=== PATIENT | female | born 1990 | race Caucasian/White ===

== ENCOUNTER 2018-02-10 01:04 | Emergency (ER) | payer BC, OTHER ==
[~2018-02-10] VITALS: Ht 162.6 cm; Wt 67.7 kg
[~2018-02-10 01:04] MED LIST: ARIP5TAB13 PO; CLON0.5T20 PO; GABA600T2 PO; LAMO100T5 PO; ZOLP-413 PO
--- NOTE | 2018-02-10 01:38 | NUR ---
PT AMBULATED TO ROOM WITH A STEADY GAIT. PT HERE FOR FEVER AND NECK PAIN. PT SEEN AT FOR SAME. PT UP TO BATHROOM FOR UA. LAB AT BEDSIDE
[2018-02-10 01:48] LABS: BASOPHILS # (AUTO) 0.01 x10^3/uL (0-0.1); BASOPHILS % (AUTO) 0 % (0-1); EOSINOPHILS # (AUTO) 0.15 x10^3/uL (0-0.4); EOSINOPHILS % (AUTO) 2 % (1-7); LYMPHOCYTES # (AUTO) 2.27 x10^3/uL (1-3.4); LYMPHOCYTES % (AUTO) 25 % (22-44); MD NO; MEAN CORPUSCULAR HEMOGLOBIN 28.3 pg (27.0-34.8); MEAN CORPUSCULAR HGB CONC 34.1 g/dL (32.4-35.8); MEAN CORPUSCULAR VOLUME 83.1 fL (80-100); MEAN PLATELET VOLUME 8.2 fL (7.4-10.4); MONOCYTES # (AUTO) 0.44 x10^3/uL (0.2-0.8); MONOCYTES % (AUTO) 5 % (2-9); NEUTROPHILS # (AUTO) 6.24 x10^3/uL (1.8-6.8); NEUTROPHILS % (AUTO) 69 % (42-75); PLATELET COUNT 259 x10^3/uL (130-400); RED BLOOD COUNT 4.98 x10^6/uL (3.82-5.3)
[2018-02-10 01:57] LABS: HCG UR SG 1.033 (1.003-1.030); MICROSCOPIC INDICATED
[2018-02-10 01:57] LABS: ALBUMIN 4.2 g/dL (3.4-5.0); ANION GAP 7 mmol/L (5-15); CALCIUM 9.1 mg/dL (8.5-10.1); CHLORIDE 108 mmol/L (98-107); CREATININE 0.91 mg/dL (0.55-1.02)
[2018-02-10 02:01] LABS: RAPID INFLUENZA A Negative (Negative); RAPID INFLUENZA B Negative (Negative)
[2018-02-10 02:08] LABS: CULTURE INDICATED? YES
[2018-02-10 02:25] VITALS: BP 109/71
== END 2018-02-10 02:57 | disposition home or self-care (01) ==
LOC: ED 01:38
DX: S16.1XXA Strain of muscle, fascia and tendon at neck level, initial encounter (principal); F31.9 Bipolar disorder, unspecified; Z87.891 Personal history of nicotine dependence; X58.XXXA Exposure to other specified factors, initial encounter; Y93.89 Activity, other specified; Y92.89 Other specified places as the place of occurrence of the external cause; Y99.8 Other external cause status
CPT/HCPCS: 36415; 80048; 81001; 81025; 82040; 85025; 87086; 87400; 99283

== ENCOUNTER 2019-09-14 11:43 | Emergency (ER) | payer SELFPAY ==
[~2019-09-14] VITALS: Ht 157.5 cm; Wt 72.0 kg
[~2019-09-14 11:43] MED LIST changes: -GABA600T2 PO; +GABA600T7 PO
[2019-09-14] MEDS ORDERED: KETOROLAC 30 MG/1 ML ONE (12:10)
[2019-09-14] MEDS ORDERED: SODIUM CHLORIDE 0.9% 1,000ML IVBOLUS ONE (12:30)
[2019-09-14] MEDS ORDERED: KETOROLAC 30 MG/1 ML IVPush ONE (12:30)
--- NOTE | 2019-09-14 12:32 | NUR ---
this tech took vitals and transported pt
--- NOTE | 2019-09-14 12:43 | NUR ---
PT TESTED POSITIVE FOR COVID ON SUNDAY. SYMPTOMS FOR A WEEK W DRY COUGH, SOB, MUSCLE ACHES. SPO2 98% RA. HEALTH HX OF ASTHMA. DENIES CP, N/V. PT ALSO HAS DIARRHEA. LABS, IVF, MEDS PER ORDERS COMPLETE.
[2019-09-14 12:50] LABS: BASOPHILS # (AUTO) 0.02 x10^3/uL (0-0.1); BASOPHILS % (AUTO) 0 % (0-1); EOSINOPHILS # (AUTO) 0.02 x10^3/uL (0-0.4); EOSINOPHILS % (AUTO) 0 % (1-7); LYMPHOCYTES # (AUTO) 1.81 x10^3/uL (1-3.4); LYMPHOCYTES % (AUTO) 32 % (22-44); MD NO; MEAN CORPUSCULAR HEMOGLOBIN 27.8 pg (27.0-34.8); MEAN CORPUSCULAR HGB CONC 33.8 g/dL (32.4-35.8); MEAN CORPUSCULAR VOLUME 82.1 fL (80-100); MEAN PLATELET VOLUME 8.2 fL (7.4-10.4); MONOCYTES # (AUTO) 0.34 x10^3/uL (0.2-0.8); MONOCYTES % (AUTO) 6 % (2-9); NEUTROPHILS # (AUTO) 3.56 x10^3/uL (1.8-6.8); NEUTROPHILS % (AUTO) 62 % (42-75); PLATELET COUNT 200 x10^3/uL (130-400); RED BLOOD COUNT 4.96 x10^6/uL (3.82-5.3); RED CELL DISTRIBUTION WIDTH 13.2 % (9.6-15.2)
[2019-09-14 13:01] LABS: ALANINE AMINOTRANSFERASE 35 U/L (12-78); ALBUMIN 3.4 g/dL (3.4-5.0); ANION GAP 9 mmol/L (5-15); C-REACTIVE PROTEIN, QUANT 0.38 mg/dL (0.02-0.49); CALCIUM 8.6 mg/dL (8.5-10.1); CHLORIDE 111 mmol/L (98-107); CREATININE 0.54 mg/dL (0.55-1.02)
[2019-09-14 13:04] LABS: ALKALINE PHOSPHATASE 82 U/L (45-117); BILIRUBIN,TOTAL 0.3 mg/dL (0.2-1.0); TOTAL PROTEIN 7.1 g/dL (6.4-8.2)
--- NOTE | 2019-09-14 14:00 | NUR ---
PT STATES SHE STILL FEELS WEAK AND DIZZY. IVF COMPLETE. VSS
[2019-09-14 14:53] VITALS: BP 111/64
--- NOTE | 2019-09-14 14:55 | NUR ---
Patient/Caregiver given discharge instructions and they have confirmed that they understand the instructions. Patient ambulatory with steady gait.
== END 2019-09-14 14:55 ==
LOC: ED 14:38
DX: U07.1 COVID-19 (principal); R19.7 Diarrhea, unspecified; R42 Dizziness and giddiness; R11.0 Nausea; R53.1 Weakness; R51 Headache
CPT/HCPCS: 36415; 71045; 80053; 83605; 84145; 85025; 86140; 93005; 96361; 96374; 99285; J1885; J7030

== ENCOUNTER 2020-08-09 11:35 | Emergency (ER) | payer OTHER ==
[~2020-08-09] VITALS: Ht 160 cm; Wt 82.0 kg
--- NOTE | 2020-08-09 11:46 | NUR ---
PATIENT WALKED BACK FROM TRIAGE WITH CHIEF C/O VAGINAL BLEEDING X3 WEEKS. PER PATIENT BLEEDING GETTING WORSE, REFERRED BY PCP TO GET TESTING DONE. ABD CRAMPS SINCE YESTERDAY, FEELING DIZZY. NADN, CONNECTED TO MONITOR, VSS, CALL LIGHT WITHIN REACH.
--- NOTE | 2020-08-09 12:44 | NUR ---
PHYSICIAN ASSISTANT SURGERY AT BEDSIDE.
[2020-08-09 12:48] LABS: BASOPHILS % (AUTO) 1 % (0-1); EOSINOPHILS % (AUTO) 0 % (1-7); LYMPHOCYTES % (AUTO) 23 % (22-44); MEAN CORPUSCULAR HEMOGLOBIN 28.1 pg (27.0-34.8); MEAN CORPUSCULAR HGB CONC 34.5 g/dL (32.4-35.8); MEAN PLATELET VOLUME 8.3 fL (7.4-10.4); MONOCYTES % (AUTO) 7 % (2-9); NEUTROPHILS % (AUTO) 70 % (42-75); PLATELET COUNT 240 x10^3/uL (130-400); RED BLOOD COUNT 4.85 x10^6/uL (3.82-5.3); RED CELL DISTRIBUTION WIDTH 13.5 % (9.6-15.2)
[2020-08-09 13:20] VITALS: BP 151/97
--- NOTE | 2020-08-09 13:20 | NUR ---
PATIENT RESTING IN GURNEY, CONNECTED TO MONITOR, VSS, CALL LIGHT WITHIN REACH. WAITING FOR ULTRASOUND RESULTS.
--- NOTE | 2020-08-09 13:56 | NUR ---
Patient given discharge instructions and they have confirmed that they understand the instructions. Patient ambulatory with steady gait. NAD, all questions answered appropriately, denies additional needs at this time. No personal belongings left in room after discharge.
== END 2020-08-09 13:57 | disposition home or self-care (01) ==
LOC: ED 13:45
DX: N93.8 Other specified abnormal uterine and vaginal bleeding (principal); R53.1 Weakness; R42 Dizziness and giddiness
CPT/HCPCS: 36415; 76830; 84702; 85025; 93005; 99285